=== PATIENT | female | born 1960 | race Caucasian/White ===

== ENCOUNTER 2017-11-09 13:51 | Outpatient (CLI) | payer BC ==
--- NOTE | 2017-11-09 15:25 | CONSULTATION REPORT ---
REFERRING PHYSICIAN: Dr. Jakob Ray CONSULTING PHYSICIAN: Phillip Wagner MD Dear Dr. Ray: HISTORY OF PRESENT ILLNESS: Thank you for the consultation request regarding Ariana Landaverde. This is a 57- year-old white woman with a chief complaint of bilateral leg pain. It is from the knee down and involves mainly the anterior part of the leg. It really started at the toes and ankles and worked its way up. She has had an extensive evaluation including x-rays of the knees, consultation with Neurology, consultation with Neurosurgery. She has CT myelograms and injections in her back with no relief of her symptoms. She also has pain in her hands, mainly in the thumbs, but no swelling. She has a little discomfort in her shoulders. She has no significant morning stiffness. Her pain has been present since 2014 but is gradually worsening. She was recently started on Mirapex 0.125 mg with some improvement in her symptoms. She was found to have restless legs. It is worse at night, but she also has symptoms in the evening when watching TV. She has been on Mirapex now for about a month. PAST MEDICAL HISTORY: 1. Hypertension. 2. Headaches. 3. Unspecified heart problems. PAST SURGICAL HISTORY: 1. Ostectomy of calcaneus of right heel. 2. Carpal tunnel release of right hand. 3. Complete hysterectomy. MEDICATIONS: 1. Estradiol 1 mg daily. 2. Amitriptyline 25 mg at bedtime. 3. Meloxicam 15 mg daily. 4. Metoprolol 25 mg twice a day. 5. Maxalt 10 mg as needed. 6. Xanax 0.25 mg as needed. 7. Trental 200 mg. 8. Levothyroxine 100 mcg. 9. Atorvastatin 10 mg. 10. Desipramine 25 mg. 11. Zofran 4 mg as needed. 12. Omeprazole. 13. Mirapex [id number] MEDICATIONS: 1. Vitamin C. 2. Calcium. 3. MiraLAX. 4. Tylenol. ALLERGIES: Otherwise, she has no known drug allergies. SOCIAL HISTORY: She quit smoking 16 years ago. She has an occasional drink. She is . She works as a Mobile Product Manager. No children. REVIEW OF SYSTEMS: She has put on 25 pounds. She has fatigue, weakness, dry eyes, ringing in the ears, palpitations, heart murmurs, constipation, headaches, muscle spasms, hand sensitivity, excessive worries, anxiety, and depression. Otherwise, no visual loss. No red painful eyes. No dry mouth. No difficulty swallowing. No mouth sores. No history of pleurisy. No cough or wheezing. No nausea, vomiting, or diarrhea. No dark stools or bloody stools. No urinary symptoms. No history of STDs. No skin rashes, hives, photo sensitivity. No history of psoriasis. No color changes in hands or feet in the cold. PHYSICAL EXAMINATION: VITAL SIGNS: Height: 5 feet 2 inches. Weight: 223 pounds. T: 98, R: 20, heart rate 70, BP: 150/76. HEENT: Sclerae are anicteric. Conjunctivae are pink. No stomatitis or glossitis. LUNGS: Clear with no crackles or wheezing or rubs. HEART: Regular rate and rhythm. ABDOMEN: Soft and nontender. VASCULAR: No edema or cyanosis. SKIN: Skin exam of the head, trunk, and extremities, as well as nails, reveals no abnormalities. PERIPHERAL JOINTS: Palpation of the DIPs, PIPs, MCPs, wrists, elbows, shoulders , hips, knees, ankles, and feet reveal no synovitis, effusions, or warmth, just some tenderness at both ankles. EXAMINATION OF HER LOWER LEGS: Tenderness to pressure and palpation anteriorly but no rashes. No edema. No warmth. No deformity. IMPRESSION: 1. Lower leg pain and possible arthralgias. 2. Restless legs, which could explain her leg pain. It continues to be symptomatic. PLAN: 1. We will obtain Dr. Cruz's records. 2. We will obtain rheumatoid studies with serologies, sedimentation rate, and CRP. 3. I am increasing Mirapex to 0.125 mg twice a day. One dose at noon and one dose at bedtime. 4. I will see the patient back in 4 weeks. Thank you very much for the opportunity to participate in the care of your patient. Best regards, cc: Dr. Jakob QUINTANILLA
== END 2017-11-09 15:01 ==
LOC: RHEU 13:51
PROVIDERS: ATTEND Internal Medicine
DX: M79.669 Pain in unspecified lower leg (principal); G25.81 Restless legs syndrome
CPT/HCPCS: 99213; 99214

== ENCOUNTER 2017-12-14 14:14 | Outpatient (CLI) | payer OTHER ==
--- NOTE | 2017-12-17 15:15 | OP Clinic Progress Note ---
Dear Dr. Ray: REASON FOR VISIT: I had the pleasure of seeing Ariana Landaverde on follow up. She has had no improvement with doubling up on her Mirapex. She continues to have pain in her legs and feet and stiffness in her hands. At times, her legs feel wobbly. I received some of her labs from [facility]. C-reactive protein was slightly elevated at 1.10. Normal is less than 50. ANA MARÍA screen was negative. CCP antibody was negative, however, rheumatoid factor, sedimentation rate, etc. were not forwarded to us. PAST MEDICAL HISTORY: 1. Hypertension. 2. Headaches. 3. Ostectomy of right heel. 4. Carpal tunnel release. 5. Hysterectomy. PRESENT MEDICATIONS: 1. Estradiol 1 mg daily. 2. Amitriptyline 25 mg at bedtime. 3. Mobic 15 mg daily. 4. Metoprolol 25 mg twice a day. 5. Maxalt as needed. 6. Xanax 0.25 mg as needed. 7. Trental 200 mg daily. 8. Levothyroxine 100 mcg daily. 9. Atorvastatin 10 mg daily. 10. Desipramine 25 mg. 11. Zofran. 12. Omeprazole. 13. Mirapex twice a day. ALLERGIES: No known drug allergies. REVIEW OF SYSTEMS: Remains unchanged. No fevers, chills, sweats, chest pain, shortness of breath, cough, or wheezing. Continued weight gain. She has also noted a slight change in her urine. PHYSICAL EXAMINATION: VITAL SIGNS: T: 96.9, R: 20, heart rate 77, BP: 150/70. HEENT: Grossly unremarkable. LUNGS: Clear. HEART: Regular rate and rhythm. ABDOMEN: Soft. VASCULAR: No edema or cyanosis. PERIPHERAL JOINTS: Tenderness but no overt synovitis at the PIPs, MCPs, elbows , shoulders, and knees. IMPRESSION: Idiopathic polyarthritis. PLAN: 1. I am going to put her on a trial of prednisone 5 mg twice a day for the idiopathic polyarthritis. 2. I will see her back in 4 weeks and in the meantime, we will contact [facility] and get the rest of her labs. Thank you very much. cc: Dr. Jakob Ray [facility]
== END 2017-12-14 14:25 ==
LOC: RHEU 14:14
PROVIDERS: ATTEND Internal Medicine
DX: M13.0 Polyarthritis, unspecified (principal)
CPT/HCPCS: 99213; 99214

== ENCOUNTER 2018-01-11 13:46 | Outpatient (CLI) | payer OTHER ==
--- NOTE | 2018-01-11 18:08 | OP Clinic Progress Note ---
Dear Dr. Ray: REASON FOR VISIT: I had the pleasure of seeing Ariana Landaverde in follow up for polyarthritis. At her last visit, I put her on prednisone 5 mg twice a day and the discomfort in her hands, wrists, elbows, and hips has resolved. She still has that funny sensation in her lower legs and continues on Mirapex twice a day. Her labs again, slightly elevated CRP at 1.10. ANA MARÍA screen was negative. CCP antibody, rheumatoid factor, and sedimentation rate were normal. PAST MEDICAL HISTORY: 1. Hypertension. 2. Headaches. 3. Ostectomy of right heel. 4. Carpal tunnel release. 5. Hysterectomy. PRESENT MEDICATIONS: 1. Mirapex 0.125 mg twice a day. 2. Omeprazole. 3. Zofran. 4. Desipramine 25 mg daily. 5. Atorvastatin 10 mg daily. 6. Levothyroxine 100 mcg daily. 7. Trental. 8. Xanax. 9. Maxalt. 10. Metoprolol 25 mg twice a day. 11. Amitriptyline. 12. Estradiol. ALLERGIES: No known drug allergies. REVIEW OF SYSTEMS: No fevers, chills, sweats, chest pain, shortness of breath, cough, wheezing, nausea, vomiting, or diarrhea. PHYSICAL EXAMINATION: GENERAL: She looks well. VITAL SIGNS: Height: 5 feet 2 inches. Weight: 226 pounds. T: 97.8, R: 20, Heart rate 71, BP: 130/60. HEENT: Grossly unremarkable. LUNGS: Clear. HEART: Regular rate and rhythm. ABDOMEN: Soft. VASCULAR: No edema or cyanosis. PERIPHERAL JOINTS: No synovitis at the DIPs, PIPs, MCPs, wrists, elbows, shoulders, hips, knees, ankles, and feet. She does have so patellofemoral tenderness and grinding. IMPRESSION: 1. I think she likely has seronegative rheumatoid arthritis. 2. As for her knee pain, I think she has some patellofemoral disease. PLAN: 1. I am continuing prednisone 5 mg twice a day. 2. I am instituting Plaquenil 200 mg twice a day. 3. I gave her some exercises and I am sending her to physical therapy. 4. I hope at her next visit if she has noted some improvement in her symptoms to stop the Mirapex, potentially the Trental, and the desipramine. 5. I would like to see her back in 8 weeks. Thank you very much for the opportunity to participate in the care of your patients. Best regards, cc: Dr. Cory QUINTANILLA
== END 2018-01-11 13:47 ==
LOC: RHEU 13:46
PROVIDERS: ATTEND Internal Medicine
DX: M13.0 Polyarthritis, unspecified (principal)
CPT/HCPCS: 99213; 99214

== ENCOUNTER 2018-03-15 14:09 | Outpatient (CLI) | payer OTHER ==
--- NOTE | 2018-03-19 12:08 | OP Clinic Progress Note ---
REASON FOR VISIT: Ariana Landaverde returns for follow up of polyarthritis which I feel to seronegative rheumatoid arthritis (RA). She is doing well on prednisone 5 mg twice a day and Plaquenil 200 mg twice a day. She also had done some physical therapy for her knees and she continues to do better. A confounding feature of her suffering is a funny sensation in the legs which we feel is restless leg. On Mirapex twice a day, she has significant relief. Again, she is ANA MARÍA, CCP, and rheumatoid factor negative. CRP is slightly elevated at 1.1. Sedimentation rate was normal. PAST MEDICAL AND SURGICAL HISTORY: 1. Hypertension. 2. Headaches. 3. Osteotomy of right heel. 4. Carpal tunnel release. 5. Hysterectomy. PRESENT MEDICATIONS: 1. Mirapex 0.125 mg twice a day. 2. Omeprazole. 3. Zofran. 4. Desipramine 25 mg daily. 5. Atorvastatin 10 mg daily. 6. Levothyroxine 100 mcg daily. 7. Trental 400 mg daily. 8. Xanax. 9. Maxalt. 10. Metoprolol 25 mg twice a day. 11. Amitriptyline. 12. Estradiol. 13. Meloxicam. 14. Prednisone 5 mg twice a day. 15. Plaquenil 200 mg twice a day. ALLERGIES: She has no known drug allergies. REVIEW OF SYSTEMS: She has had some sweats but no fevers. No visual changes. No chest pain, shortness of breath, cough or wheezing, nausea, vomiting or diarrhea. She has noted some weight gain. PHYSICAL EXAMINATION: GENERAL: She looks well. VITAL SIGNS: Weight: 234, up from 226. R: 18, P: 77, BP: 130/80, T: 97.8. Pain in the knees is 4/10. Morning stiffness is less than 15 minutes. HEENT: Sclerae are anicteric. Conjunctivae are pink. No stomatitis or glossitis. LUNGS: Clear bilaterally with no crackles or wheezing. HEART: Regular rate and rhythm. ABDOMEN: Soft and nontender. VASCULAR: No edema or cyanosis. PERIPHERAL JOINTS: DIPs, PIPs, MCPs, wrists, elbows, shoulders, hips, knees, ankles, and feet are all unremarkable. No tenderness. IMPRESSION: 1. Seronegative rheumatoid arthritis (RA). 2. Restless legs. 3. Hypothyroidism. PLAN: 1. Decrease prednisone to 5 mg daily and she can try to stop it before her next visit in May. 2. Continue Plaquenil 200 mg twice a day. 3. Continue Mirapex as is. 4. The patient wishes to simply her medication regimen. We are going to try to stop her Trental. 5. Clinically, the patient is euthyroid. Thank you very much. cc: Dr. Jakob QUINTANILLA
== END 2018-03-15 14:10 ==
LOC: RHEU 14:09
PROVIDERS: ATTEND Internal Medicine
DX: M06.9 Rheumatoid arthritis, unspecified (principal); G25.81 Restless legs syndrome; E03.9 Hypothyroidism, unspecified
CPT/HCPCS: 99213; 99214